=== PATIENT | male | born 1940 | race Caucasian/White ===

== ENCOUNTER 2021-06-11 14:34 | Inpatient (IN) | payer OTHER, MEDICARE, BC ==
[2021-06-11] MEDS ORDERED: Fentanyl 100 MCG/2 ML VIAL ONE ×2 (14:40→15:18)
[2021-06-11] MEDS ORDERED: Iopamidol-370 76% 500 ML 1 ML ONE (15:15)
[2021-06-11] MEDS ORDERED: levETIRAcetam in NS 200 ML ONE (16:48)
[2021-06-11] MEDS ORDERED: Morphine 2 MG/ML VIAL ONE (20:54)
[2021-06-11 20:59] LABS: Anion Gap 14 mmol/L (10-20); BUN (Urea Nitrogen) 17 mg/dL (8.4-25.7); Calc. Creatinine Clearance 0 mL/min (70-130); Carbon Dioxide 19 mmol/L (23-31); Chloride 110 mmol/L (98-107); Glucose 329 mg/dL (83-110); Potassium 3.6 mmol/L (3.5-5.1); Sodium 139 mmol/L (136-145)
[2021-06-11 21:00] LABS: ALT (SGPT) 29 U/L (8-55); AST (SGOT) 47 U/L (5-34); Acetaminophen Less than 6.0 mcg/mL (10.0-30.0); Albumin 3.5 g/dL (3.4-4.8); Alcohol Less than 10 mg/dL (Less than 10); Alkaline Phosphatase 84 U/L (40-110); Bilirubin, Total 0.5 mg/dL (0.2-1.2); Calcium 8.1 mg/dL (7.8-10.44); Protein, Total 6.5 g/dL (5.8-8.1); Salicylate Less than 8.0 mg/dL (15.0-30.0)
[2021-06-11 21:01] LABS: Lactic Acid 3.9 mmol/L (0.5-2.2)
[2021-06-11 21:03] LABS: Hemoglobin 10.2 g/dL (14.0-18.0); Red Blood Cell (RBC) Count 3.71 mill/uL (4.70-6.10); White Blood Cell (WBC) Count 12.8 thou/uL (4.8-10.8)
[2021-06-11 21:04] LABS: MDiff Complete? YES; Manual Diff?? YES; Mean Corpuscular HGB CONC 32.8 g/dL (32.0-36.0); Mean Corpuscular Hemoglobin 27.3 pg (27.0-31.0); Mean Corpuscular Volume 83.5 fL (78.0-98.0); Platelet Count 304 thou/uL (130-400); RBC Distribution Width 14.8 % (11.5-14.5)
[2021-06-11 21:05] LABS: Band 3 % (5-11); Lymphocytes 32 % (21-51); Monocytes 5 % (0-10); Neutrophil 60 % (42-75); Ovalocytes SLIGHT = 2-5 cells (100X) (0-1/hpf); Polychromasia SLIGHT = 2-3 cells (100X) (0-2/hpf)
[2021-06-11 21:06] LABS: Platelet Morphology Comment Appears Adequate
[2021-06-11 21:07] LABS: INR-International Normal Ratio 1.1; Prothrombin Time 13.9 sec (12.0-14.7)
[2021-06-11] MEDS ORDERED: Lorazepam 2 MG/ML VIAL SLOW IVP PRN (22:16)
[2021-06-12] MEDS ORDERED: Lorazepam 2 MG/ML VIAL ONE (00:15)
[2021-06-12] MEDS ORDERED: Morphine 2 MG/ML VIAL ONE (06:54)
[2021-06-12] MEDS ORDERED: hydrALAZINE 20 MG/ML VIAL SLOW IVP PRN (07:14)
[2021-06-12] MEDS ORDERED: Dextrose 5% in Water 1,000 ML IV PRN (07:14)
[2021-06-12] MEDS ORDERED: Dextrose 50% Abboject 50 ML SYRINGE SLOW IVP PRN (07:14)
[2021-06-12] MEDS ORDERED: Ondansetron ODT 4 MG TAB PO PRN (07:14)
[2021-06-12] MEDS ORDERED: Ondansetron PF 4 MG/2 ML Vial IVP PRN (07:14)
[2021-06-12] MEDS ORDERED: Morphine 2 MG/ML VIAL SLOW IVP PRN (07:27)
[2021-06-12 10:03] VITALS: BMI 34.4
[2021-06-12] MEDS: Famotidine 20 MG TAB PO SCH ×2 (10:09→21:46)
[2021-06-12] MEDS: Sodium Chloride 0.9% 1,000 ML IV SCH ×2 (10:09→16:47)
[2021-06-12] MEDS: levETIRAcetam 500 MG TAB PO SCH ×2 (10:09→21:45)
[2021-06-12] MEDS ORDERED: Dexamethasone 20 MG/5 ML VIAL SLOW IVP SCH (11:15)
[2021-06-12] MEDS: Acetaminophen 325 MG TAB PO SCH ×2 (11:30→18:40)
[2021-06-12] MEDS ORDERED: Bacitracin Zinc Ointment 30 gm TUBE TOP PRN (11:36)
[2021-06-12 11:39] LABS: Anion Gap 15 mmol/L (10-20); BUN (Urea Nitrogen) 13 mg/dL (8.4-25.7); Calc. Creatinine Clearance 99 mL/min (70-130); Calcium 7.8 mg/dL (7.8-10.44); Carbon Dioxide 22 mmol/L (23-31); Chloride 111 mmol/L (98-107); Magnesium 1.1 mg/dL (1.6-2.6); Phosphorus 2.5 mg/dL (2.3-4.7); Potassium 3.6 mmol/L (3.5-5.1); Sodium 144 mmol/L (136-145)
[2021-06-12] MEDS ORDERED: Acetaminophen 500 MG TAB PO SCH (12:00)
[2021-06-12] MEDS ORDERED: Dexamethasone 4 mg/ml Vial SLOW IVP SCH (12:00)
[2021-06-12] MEDS: HumaLOG 300 UNITS/3 ML VIAL SC PRN ×3 (12:11→21:47)
[2021-06-12 13:33] LABS: Hemoglobin 9.9 g/dL (14.0-18.0); Mean Corpuscular HGB CONC 32.7 g/dL (32.0-36.0); Mean Corpuscular Hemoglobin 27.6 pg (27.0-31.0); Mean Corpuscular Volume 84.4 fL (78.0-98.0); Mean Platelet Volume 8.9 fL (7.4-10.4); Platelet Count 232 thou/uL (130-400); RBC Distribution Width 14.7 % (11.5-14.5); Red Blood Cell (RBC) Count 3.59 mill/uL (4.70-6.10); White Blood Cell (WBC) Count 11.5 thou/uL (4.8-10.8)
[2021-06-12 13:34] LABS: #Lymphocytes 2.5 thou/uL (1.20-3.40); %Basophils 0.1 % (0.0-1.0); %Eosinophils 0.3 % (0.0-10.0); %Lymphocytes 21.4 % (21.0-51.0); %Monocytes 8.9 % (0.0-10.0); %Neutrophils 69.3 % (42.0-75.0)
[2021-06-12] MEDS ORDERED: Lorazepam 2 MG/ML VIAL SLOW IVP PRN (13:43)
[2021-06-12] MEDS: ceFAZolin 1 GM/D5W 1 GM in Premix Bag 1 BAG IVPB SCH ×2 (15:07→21:41)
[2021-06-12] MEDS: Acetaminophen/Codeine 30-300mg Tablet PO PRN (16:45)
[2021-06-12] MEDS: Lisinopril 20 MG TAB PO SCH (21:45)
[2021-06-12] MEDS: Terazosin HCl 5 MG CAP PO SCH (21:45)
[2021-06-12] MEDS: Senokot S 8.6-50 MG TAB PO SCH (21:49)
[2021-06-12] MEDS: Lantus 1000 UNITS/10 ML VIAL SC SCH (21:50)
[2021-06-12] MEDS ORDERED: Pregabalin 75 MG CAP PO SCH (22:00)
[2021-06-13] MEDS: Acetaminophen/Codeine 30-300mg Tablet PO PRN ×2 (00:09→08:58)
[2021-06-13] MEDS: Acetaminophen 325 MG TAB PO SCH ×4 (00:11→18:02)
[2021-06-13] MEDS ORDERED: RisperDAL M-TAB 1 MG TAB SL SCH (04:45)
[2021-06-13] MEDS: Levothyroxine Sodium 75 MCG TAB PO SCH (06:23)
[2021-06-13] MEDS: ceFAZolin 1 GM/D5W 1 GM in Premix Bag 1 BAG IVPB SCH ×3 (06:25→20:59)
[2021-06-13] MEDS: HumaLOG 300 UNITS/3 ML VIAL SC PRN ×2 (06:38→12:49)
[2021-06-13 06:47] LABS: #Lymphocytes 2.1 thou/uL (1.20-3.40); #Monocytes 1.1 thou/uL (0.11-0.59); %Basophils 0.3 % (0.0-1.0); %Eosinophils 0.1 % (0.0-10.0); %Lymphocytes 13.9 % (21.0-51.0); %Monocytes 7.1 % (0.0-10.0); %Neutrophils 78.6 % (42.0-75.0); Hemoglobin 9.3 g/dL (14.0-18.0); Mean Corpuscular HGB CONC 32.1 g/dL (32.0-36.0); Mean Corpuscular Volume 83.9 fL (78.0-98.0); Mean Platelet Volume 8.9 fL (7.4-10.4); Platelet Count 270 thou/uL (130-400); RBC Distribution Width 14.8 % (11.5-14.5); Red Blood Cell (RBC) Count 3.46 mill/uL (4.70-6.10); White Blood Cell (WBC) Count 15.2 thou/uL (4.8-10.8)
[2021-06-13 07:09] LABS: Anion Gap 18 mmol/L (10-20); BUN (Urea Nitrogen) 14 mg/dL (8.4-25.7); Calc. Creatinine Clearance 89 mL/min (70-130); Carbon Dioxide 21 mmol/L (23-31); Chloride 108 mmol/L (98-107); Glucose 311 mg/dL (83-110); Potassium 3.6 mmol/L (3.5-5.1); Sodium 143 mmol/L (136-145)
[2021-06-13] MEDS ORDERED: Lorazepam 2 MG/ML VIAL SLOW IVP PRN (07:23)
[2021-06-13] MEDS: Polyethylene Glycol 3350 17 GM Packet PO SCH (08:55)
[2021-06-13] MEDS: Pregabalin 75 MG CAP PO SCH ×2 (08:55→20:47)
[2021-06-13] MEDS: Lisinopril 20 MG TAB PO SCH ×2 (08:57→21:14)
[2021-06-13] MEDS: Amlodipine 10 MG TAB PO SCH (08:57)
[2021-06-13] MEDS: Senokot S 8.6-50 MG TAB PO SCH ×2 (08:57→21:14)
[2021-06-13] MEDS: Carvedilol 6.25 MG TAB PO SCH ×2 (08:57→18:02)
[2021-06-13] MEDS: Famotidine 20 MG TAB PO SCH ×2 (08:58→20:48)
[2021-06-13] MEDS: Finasteride 5 MG TAB PO SCH (08:58)
[2021-06-13] MEDS: levETIRAcetam 500 MG TAB PO SCH ×2 (08:58→20:47)
[2021-06-13] MEDS: Lantus 1000 UNITS/10 ML VIAL SC SCH ×2 (14:58→21:13)
[2021-06-13] MEDS ORDERED: Lorazepam 2 MG/ML VIAL SLOW IVP SCH (17:15)
[2021-06-13 18:56] LABS: Bilirubin Negative (Negative); Blood, Urine 1+ (Negative); Clarity Clear (Clear); Glucose, Urine (Dipstick) Greater than 1000 mg/dL (Negative); Ketone, Urine 10 mg/dL (Negative); Leukocyte 25 Leu/uL (Negative); Nitrite Negative (Negative); Protein, Urine (Dipstick) 30 mg/dL (Neg-Trace); Specific Gravity, Urine 1.027 (1.002-1.036); Squamous Epithelial None Seen HPF (0-3); Urobilinogen Normal mg/dL (Less than 2); pH, Urine 5.5 (5.0-9.0)
[2021-06-13 19:05] LABS: Bacteria/HPF Rare-Few HPF (None Seen)
[2021-06-13 19:07] LABS: Urine Culture Reflex Yes Yes
[2021-06-13] MEDS ORDERED: RisperDAL M-TAB 1 MG TAB SL PRN (19:35)
[2021-06-13] MEDS: Terazosin HCl 5 MG CAP PO SCH (20:47)
[2021-06-13] MEDS: Tamsulosin HCl 0.4 MG CAP PO SCH (20:48)
[2021-06-13] MEDS: Melatonin 3 MG TAB PO SCH (20:48)
[2021-06-13] MEDS: Rosuvastatin 20 MG TAB PO SCH (20:49)
[2021-06-14] MEDS: Acetaminophen 325 MG TAB PO SCH ×4 (03:25→17:54)
[2021-06-14] MEDS: HumaLOG 300 UNITS/3 ML VIAL SC PRN ×3 (05:48→17:55)
[2021-06-14] MEDS: Levothyroxine Sodium 75 MCG TAB PO SCH (05:50)
[2021-06-14] MEDS: ceFAZolin 1 GM/D5W 1 GM in Premix Bag 1 BAG IVPB SCH ×3 (06:19→21:50)
[2021-06-14 06:29] LABS: Band 3 % (5-11); Hemoglobin 9.8 g/dL (14.0-18.0); Hypochromia SLIGHT = 6-15 cells (100X) (0-5/hpf); Lymphocytes 35 % (21-51); MDiff Complete? YES; Mean Corpuscular HGB CONC 34.4 g/dL (32.0-36.0); Mean Corpuscular Hemoglobin 29.1 pg (27.0-31.0); Mean Corpuscular Volume 84.8 fL (78.0-98.0); Mean Platelet Volume 9.7 fL (7.4-10.4); Monocytes 1 % (0-10); Neutrophil 61 % (42-75); Platelet Count 171 thou/uL (130-400); Platelet Morphology Comment Appears Adequate; RBC Distribution Width 14.9 % (11.5-14.5); Red Blood Cell (RBC) Count 3.37 mill/uL (4.70-6.10)
[2021-06-14] MEDS: Polyethylene Glycol 3350 17 GM Packet PO SCH (08:48)
[2021-06-14] MEDS: Aspirin 81 mg Enteric Coated Tablet PO SCH (08:49)
[2021-06-14] MEDS: levETIRAcetam 500 MG TAB PO SCH ×2 (08:49→21:20)
[2021-06-14] MEDS: Finasteride 5 MG TAB PO SCH (08:49)
[2021-06-14] MEDS: Amlodipine 10 MG TAB PO SCH (08:49)
[2021-06-14] MEDS: Carvedilol 6.25 MG TAB PO SCH ×2 (08:49→17:54)
[2021-06-14] MEDS: Lisinopril 20 MG TAB PO SCH ×2 (08:50→21:19)
[2021-06-14] MEDS: Famotidine 20 MG TAB PO SCH ×2 (08:50→21:17)
[2021-06-14] MEDS: Pregabalin 75 MG CAP PO SCH ×2 (08:50→21:21)
[2021-06-14] MEDS: Senokot S 8.6-50 MG TAB PO SCH ×2 (08:50→21:19)
[2021-06-14] MEDS: Lantus 1000 UNITS/10 ML VIAL SC SCH ×2 (08:52→21:24)
[2021-06-14 11:22] LABS: Glucose 200 mg/dL (83-110)
[2021-06-14 16:03] LABS: SARS-CoV-2 PCR by NAA Not Detected (NotDetected)
[2021-06-14] MEDS: Rosuvastatin 20 MG TAB PO SCH (21:17)
[2021-06-14] MEDS: Melatonin 3 MG TAB PO SCH (21:19)
[2021-06-14] MEDS: Terazosin HCl 5 MG CAP PO SCH (21:19)
[2021-06-14] MEDS: Tamsulosin HCl 0.4 MG CAP PO SCH (21:19)
[2021-06-15] MEDS: Acetaminophen 325 MG TAB PO SCH ×4 (01:38→17:17)
[2021-06-15] MEDS: ceFAZolin 1 GM/D5W 1 GM in Premix Bag 1 BAG IVPB SCH ×3 (05:29→21:26)
[2021-06-15] MEDS: Levothyroxine Sodium 75 MCG TAB PO SCH (05:32)
[2021-06-15] MEDS: HumaLOG 300 UNITS/3 ML VIAL SC PRN ×3 (06:01→16:40)
[2021-06-15 06:55] LABS: #Eosinphils 0.1 thou/uL (0.0-0.7); #Lymphocytes 1.8 thou/uL (1.20-3.40); #Monocytes 0.5 thou/uL (0.11-0.59); #Neutrophils 3.4 thou/uL (1.40-6.50); %Basophils 0.3 % (0.0-1.0); %Lymphocytes 31.3 % (21.0-51.0); %Monocytes 8.5 % (0.0-10.0); %Neutrophils 57.9 % (42.0-75.0); Hemoglobin 9.4 g/dL (14.0-18.0); Mean Corpuscular HGB CONC 32.1 g/dL (32.0-36.0); Mean Corpuscular Hemoglobin 27.1 pg (27.0-31.0); Mean Corpuscular Volume 84.3 fL (78.0-98.0); Mean Platelet Volume 8.6 fL (7.4-10.4); Platelet Count 262 thou/uL (130-400); RBC Distribution Width 14.6 % (11.5-14.5); Red Blood Cell (RBC) Count 3.47 mill/uL (4.70-6.10); White Blood Cell (WBC) Count 5.8 thou/uL (4.8-10.8)
[2021-06-15 07:16] LABS: Anion Gap 15 mmol/L (10-20); BUN (Urea Nitrogen) 19 mg/dL (8.4-25.7); Calc. Creatinine Clearance 112 mL/min (70-130); Calcium 8.2 mg/dL (7.8-10.44); Carbon Dioxide 24 mmol/L (23-31); Chloride 110 mmol/L (98-107); Glucose 214 mg/dL (83-110); Magnesium 1.4 mg/dL (1.6-2.6); Phosphorus 2.9 mg/dL (2.3-4.7); Potassium 3.5 mmol/L (3.5-5.1); Sodium 145 mmol/L (136-145)
[2021-06-15] MEDS: Polyethylene Glycol 3350 17 GM Packet PO SCH (08:00)
[2021-06-15] MEDS: Pregabalin 75 MG CAP PO SCH ×2 (08:00→21:23)
[2021-06-15] MEDS: Senokot S 8.6-50 MG TAB PO SCH ×2 (08:00→21:22)
[2021-06-15] MEDS: levETIRAcetam 500 MG TAB PO SCH ×2 (08:00→21:23)
[2021-06-15] MEDS: Carvedilol 6.25 MG TAB PO SCH ×2 (08:00→17:18)
[2021-06-15] MEDS: Aspirin 81 mg Enteric Coated Tablet PO SCH (08:01)
[2021-06-15] MEDS: Famotidine 20 MG TAB PO SCH ×2 (08:01→21:22)
[2021-06-15] MEDS: Lisinopril 20 MG TAB PO SCH ×2 (08:01→21:22)
[2021-06-15] MEDS: Amlodipine 10 MG TAB PO SCH (08:01)
[2021-06-15] MEDS: Lantus 1000 UNITS/10 ML VIAL SC SCH ×2 (08:01→21:33)
[2021-06-15] MEDS: Finasteride 5 MG TAB PO SCH (08:01)
[2021-06-15] MEDS ORDERED: Magnesium Sulfate 4 GM in Sodium Chloride 0.9% 250 ML 250 ML IVPB SCH (08:30)
[2021-06-15] MEDS: metFORMIN 500 MG TAB PO SCH (16:40)
[2021-06-15] MEDS: Terazosin HCl 5 MG CAP PO SCH (21:22)
[2021-06-15] MEDS: Melatonin 3 MG TAB PO SCH (21:22)
[2021-06-15] MEDS: Tamsulosin HCl 0.4 MG CAP PO SCH (21:22)
[2021-06-15] MEDS: Rosuvastatin 20 MG TAB PO SCH (21:22)
[2021-06-15] MEDS ORDERED: Acetaminophen W/ Codeine 5 ML UDCUP PO PRN ×2 (21:34)
[2021-06-15] MEDS ORDERED: Albuterol 200 PUFF (6.7GM INHALER) INH PRN (22:03)
[2021-06-15] MEDS: Acetaminophen 650 MG/20.3 ML UDCUP PO SCH (23:50)
[2021-06-15] MEDS: Sodium Chloride 0.9% 1,000 ML IV SCH (23:54)
[2021-06-16] MEDS: Acetaminophen 650 MG/20.3 ML UDCUP PO SCH ×3 (04:55→18:52)
[2021-06-16] MEDS: ceFAZolin 1 GM/D5W 1 GM in Premix Bag 1 BAG IVPB SCH ×3 (04:55→21:28)
[2021-06-16] MEDS: Levothyroxine Sodium 75 MCG TAB PO SCH (06:39)
[2021-06-16] MEDS: Ferrous Sulfate 325 MG TAB PO SCH (08:19)
[2021-06-16] MEDS: Amlodipine 10 MG TAB PO SCH (08:19)
[2021-06-16] MEDS: Carvedilol 6.25 MG TAB PO SCH ×2 (08:19→18:52)
[2021-06-16] MEDS: Lantus 1000 UNITS/10 ML VIAL SC SCH ×2 (08:20→21:20)
[2021-06-16] MEDS: Finasteride 5 MG TAB PO SCH (08:20)
[2021-06-16] MEDS: levETIRAcetam 500 MG TAB PO SCH ×2 (08:20→21:27)
[2021-06-16] MEDS: Famotidine 20 MG TAB PO SCH ×2 (08:20→21:39)
[2021-06-16] MEDS: Pregabalin 75 MG CAP PO SCH ×2 (08:21→21:26)
[2021-06-16] MEDS: Polyethylene Glycol 3350 17 GM Packet PO SCH (08:21)
[2021-06-16] MEDS: Lisinopril 20 MG TAB PO SCH ×2 (08:21→21:26)
[2021-06-16] MEDS: Senokot S 8.6-50 MG TAB PO SCH ×2 (08:22→21:27)
[2021-06-16 10:24] LABS: #Eosinphils 0.1 thou/uL (0.0-0.7); #Lymphocytes 2.1 thou/uL (1.20-3.40); #Monocytes 0.4 thou/uL (0.11-0.59); #Neutrophils 2.3 thou/uL (1.40-6.50); %Basophils 0.4 % (0.0-1.0); %Eosinophils 2.2 % (0.0-10.0); %Lymphocytes 42.4 % (21.0-51.0); %Monocytes 8.4 % (0.0-10.0); %Neutrophils 46.6 % (42.0-75.0); Hemoglobin 9.1 g/dL (14.0-18.0); Mean Corpuscular HGB CONC 31.9 g/dL (32.0-36.0); Mean Corpuscular Hemoglobin 27.4 pg (27.0-31.0); Mean Corpuscular Volume 85.8 fL (78.0-98.0); Mean Platelet Volume 8.4 fL (7.4-10.4); Platelet Count 269 thou/uL (130-400); RBC Distribution Width 14.8 % (11.5-14.5); Red Blood Cell (RBC) Count 3.31 mill/uL (4.70-6.10)
[2021-06-16 10:54] LABS: Anion Gap 12 mmol/L (10-20); BUN (Urea Nitrogen) 14 mg/dL (8.4-25.7); Calc. Creatinine Clearance 110 mL/min (70-130); Carbon Dioxide 23 mmol/L (23-31); Chloride 113 mmol/L (98-107); Glucose 228 mg/dL (83-110); Magnesium 1.6 mg/dL (1.6-2.6); Phosphorus 2.8 mg/dL (2.3-4.7); Potassium 3.6 mmol/L (3.5-5.1); Sodium 144 mmol/L (136-145)
[2021-06-16] MEDS: Sodium Chloride 0.9% 1,000 ML IV SCH (11:04)
[2021-06-16] MEDS ORDERED: AFRIN NASAL MIST 15 ML BOT ONE (11:28)
[2021-06-16] MEDS ORDERED: Fentanyl 100 MCG/2 ML VIAL ONE ×4 (11:28→19:03)
[2021-06-16] MEDS ORDERED: Bacitracin Zinc Ointment 30 gm TUBE ONE (11:33)
[2021-06-16] MEDS ORDERED: Lidocaine 1% w/Epinephrine 1:100K 20 ML VIAL ONE (11:33)
[2021-06-16] MEDS ORDERED: Chlorhexidine Gluconate 15 ML UDCUP SSP ONE (11:33)
[2021-06-16] MEDS ORDERED: Phenylephrine 10 MG/ML VIAL ONE (11:38)
[2021-06-16] MEDS ORDERED: PROPOFOL 200 MG/20 ML VIAL ONE (12:35)
[2021-06-16] MEDS ORDERED: PHENYLEPHRINE-NS 100 MCG/ML 10 ML SYRINGE ONE (12:35)
[2021-06-16] MEDS ORDERED: Metoclopramide HCl 10 MG/2 ML VIAL ONE (12:35)
[2021-06-16] MEDS ORDERED: Ondansetron PF 4 MG/2 ML Vial ONE ×2 (12:35→17:41)
[2021-06-16] MEDS ORDERED: Succinylcholine 200 MG/10 ml SYRINGE FS ONE (12:35)
[2021-06-16] MEDS ORDERED: ePHEDrine 50 MG/ML VIAL ONE (12:35)
[2021-06-16] MEDS ORDERED: Dexamethasone 20 MG/5 ML VIAL ONE (12:35)
[2021-06-16] MEDS ORDERED: Lidocaine 1% PF 5 ML VIAL ONE (12:35)
[2021-06-16] MEDS ORDERED: levETIRAcetam in NS 1,000 MG in Premix Bag 1 BAG IVPB SCH (12:45)
[2021-06-16] MEDS ORDERED: AFRIN NASAL MIST 15 ML BOT NS SCH (12:45)
[2021-06-16] MEDS ORDERED: Calcium Chloride 1 GM/10 ML Abboject SYRINGE ONE (13:23)
[2021-06-16] MEDS ORDERED: Thrombin 5000 UNITS/5 ML VIAL ONE (13:23)
[2021-06-16] MEDS ORDERED: Famotidine/PF 20 mg/2ml Vial ONE (17:41)
[2021-06-16] MEDS ORDERED: Dexamethasone 4 mg/ml Vial ONE (18:15)
[2021-06-16] MEDS ORDERED: hydrALAZINE 20 MG/ML VIAL ONE (19:03)
[2021-06-16] MEDS: Bacitracin Zinc Ointment 30 gm TUBE TOP SCH (21:23)
[2021-06-16] MEDS: HumaLOG 300 UNITS/3 ML VIAL SC PRN (21:25)
[2021-06-16] MEDS: Tamsulosin HCl 0.4 MG CAP PO SCH (21:26)
[2021-06-16] MEDS: Melatonin 3 MG TAB PO SCH (21:28)
[2021-06-16] MEDS: Terazosin HCl 5 MG CAP PO SCH (21:28)
[2021-06-16] MEDS: Rosuvastatin 20 MG TAB PO SCH (21:28)
[2021-06-17] MEDS: Acetaminophen 650 MG/20.3 ML UDCUP PO SCH ×4 (01:46→17:37)
[2021-06-17] MEDS: ceFAZolin 1 GM/D5W 1 GM in Premix Bag 1 BAG IVPB SCH ×3 (05:40→20:50)
[2021-06-17] MEDS: HumaLOG 300 UNITS/3 ML VIAL SC PRN ×3 (05:41→16:23)
[2021-06-17] MEDS: Levothyroxine Sodium 75 MCG TAB PO SCH (05:41)
[2021-06-17 07:13] LABS: #Lymphocytes 1.3 thou/uL (1.20-3.40); #Monocytes 0.5 thou/uL (0.11-0.59); #Neutrophils 9.3 thou/uL (1.40-6.50); %Basophils 0.1 % (0.0-1.0); %Eosinophils 0.3 % (0.0-10.0); %Lymphocytes 11.8 % (21.0-51.0); %Monocytes 4.3 % (0.0-10.0); %Neutrophils 83.6 % (42.0-75.0); Hemoglobin 9.5 g/dL (14.0-18.0); Mean Corpuscular HGB CONC 30.5 g/dL (32.0-36.0); Mean Corpuscular Hemoglobin 26.6 pg (27.0-31.0); Mean Corpuscular Volume 87.1 fL (78.0-98.0); Mean Platelet Volume 8.9 fL (7.4-10.4); Platelet Count 296 thou/uL (130-400); RBC Distribution Width 15.1 % (11.5-14.5); Red Blood Cell (RBC) Count 3.56 mill/uL (4.70-6.10); White Blood Cell (WBC) Count 11.2 thou/uL (4.8-10.8)
[2021-06-17 07:20] LABS: Anion Gap 18 mmol/L (10-20); BUN (Urea Nitrogen) 15 mg/dL (8.4-25.7); Calc. Creatinine Clearance 104 mL/min (70-130); Carbon Dioxide 17 mmol/L (23-31); Chloride 114 mmol/L (98-107); Glucose 303 mg/dL (83-110); Magnesium 1.5 mg/dL (1.6-2.6); Phosphorus 2.6 mg/dL (2.3-4.7); Potassium 4.7 mmol/L (3.5-5.1); Sodium 144 mmol/L (136-145)
[2021-06-17] MEDS: Senokot S 8.6-50 MG TAB PO SCH ×2 (08:18→20:53)
[2021-06-17] MEDS: Amlodipine 10 MG TAB PO SCH (08:18)
[2021-06-17] MEDS: levETIRAcetam 500 MG TAB PO SCH ×2 (08:18→20:52)
[2021-06-17] MEDS: Carvedilol 6.25 MG TAB PO SCH ×2 (08:18→17:38)
[2021-06-17] MEDS: Polyethylene Glycol 3350 17 GM Packet PO SCH (08:18)
[2021-06-17] MEDS: metFORMIN 500 MG TAB PO SCH ×2 (08:18→16:23)
[2021-06-17] MEDS: Finasteride 5 MG TAB PO SCH (08:19)
[2021-06-17] MEDS: Pregabalin 75 MG CAP PO SCH ×2 (08:19→20:56)
[2021-06-17] MEDS: Famotidine 20 MG TAB PO SCH ×2 (08:19→20:53)
[2021-06-17] MEDS: Bacitracin Zinc Ointment 30 gm TUBE TOP SCH ×3 (08:19→21:00)
[2021-06-17] MEDS: Ferrous Sulfate 325 MG TAB PO SCH (08:19)
[2021-06-17] MEDS: Lantus 1000 UNITS/10 ML VIAL SC SCH ×2 (08:20→20:55)
[2021-06-17] MEDS: Lisinopril 20 MG TAB PO SCH ×2 (08:22→20:52)
[2021-06-17 08:45] LABS: Band 19 % (5-11); Lymphocytes 11 % (21-51); Monocytes 8 % (0-10)
[2021-06-17 08:46] LABS: Ovalocytes SLIGHT = 2-5 cells (100X) (0-1/hpf); Platelet Morphology Comment Appears Adequate; Polychromasia SLIGHT = 2-3 cells (100X) (0-2/hpf)
[2021-06-17 08:48] LABS: Neutrophil 62 % (42-75)
[2021-06-17] MEDS ORDERED: Magnesium Sulfate 4 GM in Sodium Chloride 0.9% 250 ML 250 ML IVPB SCH (12:00)
[2021-06-17] MEDS: Melatonin 3 MG TAB PO SCH (20:51)
[2021-06-17] MEDS: Terazosin HCl 5 MG CAP PO SCH (20:51)
[2021-06-17] MEDS: Rosuvastatin 20 MG TAB PO SCH (20:52)
[2021-06-17] MEDS: Tamsulosin HCl 0.4 MG CAP PO SCH (20:53)
[2021-06-18] MEDS: Acetaminophen 650 MG/20.3 ML UDCUP PO SCH ×3 (00:18→05:13)
[2021-06-18] MEDS: ceFAZolin 1 GM/D5W 1 GM in Premix Bag 1 BAG IVPB SCH (05:13)
[2021-06-18] MEDS: Levothyroxine Sodium 75 MCG TAB PO SCH (05:13)
[2021-06-18] MEDS: HumaLOG 300 UNITS/3 ML VIAL SC PRN (05:14)
[2021-06-18 05:54] LABS: #Lymphocytes 2.8 thou/uL (1.20-3.40); #Monocytes 0.7 thou/uL (0.11-0.59); #Neutrophils 5.8 thou/uL (1.40-6.50); %Basophils 0.2 % (0.0-1.0); %Eosinophils 0.5 % (0.0-10.0); %Lymphocytes 29.3 % (21.0-51.0); %Monocytes 7.9 % (0.0-10.0); %Neutrophils 62.2 % (42.0-75.0); Hemoglobin 8.3 g/dL (14.0-18.0); Mean Corpuscular HGB CONC 31.6 g/dL (32.0-36.0); Mean Corpuscular Hemoglobin 27.3 pg (27.0-31.0); Mean Corpuscular Volume 86.3 fL (78.0-98.0); Mean Platelet Volume 8.5 fL (7.4-10.4); Platelet Count 255 thou/uL (130-400); RBC Distribution Width 15.6 % (11.5-14.5); Red Blood Cell (RBC) Count 3.05 mill/uL (4.70-6.10); White Blood Cell (WBC) Count 9.4 thou/uL (4.8-10.8)
[2021-06-18 06:15] LABS: Anion Gap 8 mmol/L (10-20); BUN (Urea Nitrogen) 14 mg/dL (8.4-25.7); Calc. Creatinine Clearance 110 mL/min (70-130); Calcium 7.7 mg/dL (7.8-10.44); Carbon Dioxide 25 mmol/L (23-31); Chloride 112 mmol/L (98-107); Glucose 224 mg/dL (83-110); Magnesium 1.8 mg/dL (1.6-2.6); Phosphorus 2.4 mg/dL (2.3-4.7); Potassium 3.8 mmol/L (3.5-5.1); Sodium 141 mmol/L (136-145)
[2021-06-18] MEDS: Senokot S 8.6-50 MG TAB PO SCH (08:59)
[2021-06-18] MEDS: Carvedilol 6.25 MG TAB PO SCH (08:59)
[2021-06-18] MEDS: metFORMIN 500 MG TAB PO SCH (08:59)
[2021-06-18] MEDS: Finasteride 5 MG TAB PO SCH (08:59)
[2021-06-18] MEDS: Polyethylene Glycol 3350 17 GM Packet PO SCH (09:00)
[2021-06-18] MEDS ORDERED: Ascorbic Acid 500 mg Chewable Tablet PO SCH (09:00)
[2021-06-18] MEDS: levETIRAcetam 500 MG TAB PO SCH (09:00)
[2021-06-18] MEDS: Pregabalin 75 MG CAP PO SCH (09:00)
[2021-06-18] MEDS: Famotidine 20 MG TAB PO SCH (09:00)
[2021-06-18] MEDS: Ferrous Sulfate 325 MG TAB PO SCH (09:00)
[2021-06-18] MEDS: Lisinopril 20 MG TAB PO SCH (09:00)
[2021-06-18] MEDS: Amlodipine 10 MG TAB PO SCH (09:00)
[2021-06-18] MEDS: Lantus 1000 UNITS/10 ML VIAL SC SCH (09:01)
[2021-06-18] MEDS: Bacitracin Zinc Ointment 30 gm TUBE TOP SCH (09:01)
[2021-06-18 12:47] VITALS: BP 146/77; TEMP 97.6
[2021-06-18] MEDS ORDERED: Ferrous Sulfate 325 MG TAB PO SCH (21:00)
== END 2021-06-18 13:39 | disposition swing bed (61) | DRG 141 ==
LOC: ERS 14:34 → SURG A 06-12 02:44
PROVIDERS: ADMIT Surgery; ATTEND Surgery
PROC: 3E0333Z Introduction of Anti-inflammatory into Peripheral Vein, Percutaneous Approach (ICD-10-PCS; principal; 2021-06-12)
PROC: 0NSV04Z Reposition Left Mandible with Internal Fixation Device, Open Approach (ICD-10-PCS; 2021-06-16)
PROC: 0NST04Z Reposition Right Mandible with Internal Fixation Device, Open Approach (ICD-10-PCS; 2021-06-16)
PROC: 07DR3ZZ Extraction of Iliac Bone Marrow, Percutaneous Approach (ICD-10-PCS; 2021-06-16)
DX: S02.66XA Fracture of symphysis of mandible, initial encounter for closed fracture (principal); S06.309A Unspecified focal traumatic brain injury with loss of consciousness of unspecified duration, initial encounter; S02.31XA Fracture of orbital floor, right side, initial encounter for closed fracture; S02.19XA Other fracture of base of skull, initial encounter for closed fracture; Z20.822 Contact with and (suspected) exposure to COVID-19; R40.2412 Glasgow coma scale score 13-15, at arrival to emergency department; G40.909 Epilepsy, unspecified, not intractable, without status epilepticus; E83.42 Hypomagnesemia; I10 Essential (primary) hypertension; E11.51 Type 2 diabetes mellitus with diabetic peripheral angiopathy without gangrene; I25.10 Atherosclerotic heart disease of native coronary artery without angina pectoris; Z79.890 Hormone replacement therapy; Z79.4 Long term (current) use of insulin; Z79.51 Long term (current) use of inhaled steroids; Z79.899 Other long term (current) drug therapy; Z95.5 Presence of coronary angioplasty implant and graft; Z95.0 Presence of cardiac pacemaker; V48.5XXA Car driver injured in noncollision transport accident in traffic accident, initial encounter
CPT/HCPCS: 36415; 36416; 51702; 70450; 70486; 71045; 71260; 72125; 72170; 74177; 76377; 80048; 80053; 80307; 81001; 83605; 83735; 84100; 85007; 85025; 85027; 85610; 85730; 86850; 86900; 86901; 87086; 93005; 95816; 95819; 96374; 96375; C1713; G0390; J0360; J0690; J1100; J1815; J1953; J2060; J2270; J2370; J2405; J2704; J2765; J3010; J3475; J3490; J7050; Q9967; S0028; U0003; U0005